=== PATIENT | male | born 1995 | race Caucasian/White ===

== ENCOUNTER 2022-12-06 03:02 | Emergency (ER) | payer SELFPAY ==
[2022-12-06 03:17] VITALS: BP 156/92; PULSE 82; RESP 18; TEMP 36.6; O2SAT 95; BMI 35.7
--- NOTE | 2022-12-06 03:28 | ED.GENADULT ---
HPI - General Adult General Chief complaint: Urogenital-Male Stated complaint: painful urination Time Seen by Provider: 12/06/22 03:04 Source: patient Mode of arrival: Ambulatory History of Present Illness HPI narrative: Patient is a 27-year-old male. He is here for evaluation of approximately 7 days of painful urination. He also states that 4 days he developed a couple bumps on the tip of his penis now he is bumps of the base of the penis. They are somewhat tender to palpation. He is no history of urinary tract infections or STIs. He states that he did have vaginal and anal intercourse with his a few days prior to the onset of his symptoms. Has not tried anything for the symptoms prior to arrival. He is not having any penile discharge. Related Data Previous Rx's Medication Instructions Recorded acyclovir 400 mg tablet 400 mg PO TID 10 days #30 tabs 12/06/22 Allergies Allergy/AdvReac Type Severity Reaction Status Date / Time No Known Drug Allergies Allergy Verified 12/06/22 04:21 Review of Systems Constitutional Constitutional: Reports system reviewed and no additional complaints, except as documented Gastrointestinal Gastrointestinal: Reports system reviewed and no additional complaints, except as documented Genitourinary Genitourinary: Reports system reviewed and no additional complaints, except as documented Musculoskeletal Musculoskeletal: Reports system reviewed and no additional complaints, except as documented Exam Initial Vital Signs Initial Vital Signs: Vital Signs Temperature 98 F 12/06/22 03:17 Pulse Rate 82 12/06/22 03:17 Respiratory Rate 18 12/06/22 03:17 Blood Pressure 156/92 H 12/06/22 03:17 Pulse Oximetry 95 12/06/22 03:17 Oxygen Delivery Method Room Air 12/06/22 03:17 Const General: cooperative, comfortable and No ill appearing [facility] Head: normal to inspection External: circumcised and lesions Penis: normal penis Skin Other: A clustered area blisters at the base of the penile shaft on the left. There is no discharge. Extrem General: normal to inspection Course Orders Ordered: ED Orders 12/06/22 03:10 Chlamydia Gonorrhea PCR -URINE Stat Urinalysis and Microscopic Stat Urine Culture Stat Vital Signs Vital signs: Vital Signs - 8 hr 12/06/22 03:17 Temperature 98 F Pulse Rate 82 Respiratory Rate 18 Blood Pressure 156/92 H Pulse Oximetry 95 Oxygen Delivery Method Room Air Medical Decision Making Lab Data Lab results reviewed: Yes I reviewed the patient's lab results. Labs: Lab Results 12/06/22 Range/Units 03:10 Urine Color Yellow Urine Appearance Clear Urine pH 6.0 (4.5-8.0) Ur Specific [place] 1.025 (1.000-1.035) Urine Protein Negative (Negative) Urine Glucose (UA) Negative (Negative) g/dL Urine Ketones Negative (NEGATIVE) Urine Occult Blood Negative (Negative) Urine Nitrate Negative (Negative) Urine Bilirubin Negative (NEGATIVE) Urine Urobilinogen 1.0 (0.2) E.U./dL Ur Leukocyte Esterase Negative (NEGATIVE) Urine RBC None seen (0-5/HPF) Urine WBC 0-1/hpf (0-5/HPF) Ur Squamous Epith Cells None seen (0-5/HPF) Urine Bacteria None seen (None) Urine Mucus 1+ H (Negative) Micro UA Comment * Ur Chlamydia DNA (PCR) Not detected N gonorrhoeae DNA (PCR) Not detected Urine Dip Bedside Urine Glucose Negative Bedside Urine Bilirubin - Negative Bedside Urine Ketone - Negative Urine Specific [place] 1.025 Bedside Urine Occult Blood - Negative Bedside Urine pH 6 Bedside Urine Protein +/- 15 Bedside Urine Urobilinogen - Negative Bedside Urine Nitrite - Negative Bedside Urine Leukocytes - Negative Esterase Point of care testing: Urine Dip Bedside Urine Glucose Negative Bedside Urine Bilirubin - Negative Bedside Urine Ketone - Negative Urine Specific [place] 1.025 Bedside Urine Occult Blood - Negative Bedside Urine pH 6 Bedside Urine Protein +/- 15 Bedside Urine Urobilinogen - Negative Bedside Urine Nitrite - Negative Bedside Urine Leukocytes - Negative Esterase MDM Narrative Medical decision making narrative: Urinalysis is negative. Gonorrhea chlamydia is negative. His history physical exam is consistent with genital herpes. I have low suspicion for syphilis based on his exam. We will start him on acyclovir. Prescription was sent to the pharmacy of his choice. He was informed of his diagnosis. We discussed precautions that he should take it to avoid potential transmission to his . He was given return precautions. He expressed understanding and agreement. Discharge Plan Departure Patient Disposition: Home Clinical Impression: Genital herpes simplex Instructions: DI for Genital Herpes Activity Restrictions/Additional Instructions: I do recommend that you refrain from any sexual activity until you are not develop any new lesions in the lesions that are there have healed. I also recommend that you do not share towels during this time. You do need to keep the area covered with clothes. Contact your primary doctor for follow-up. Return to the emergency department for new symptoms. Prescriptions: New acyclovir 400 mg tablet 400 mg PO TID 10 Days Qty: 30 0RF Stand Alone Forms: Patient Portal/API
[2022-12-06 03:41] LABS: Appearance Urine UA CLEAR; Bilirubin Urine UA NEGATIVE (NEGATIVE); Color Urine UA YELLOW; Glucose Urine UA NEGATIVE (Negative); Ketones Urine UA NEGATIVE (NEGATIVE); Leukocyte Esterase Urine UA NEGATIVE (NEGATIVE); Nitrite Urine UA NEGATIVE (Negative); Occult Blood Urine UA NEGATIVE (Negative); Protein Urine UA NEGATIVE (Negative); Specific Gravity Urine UA 1.025 (1.000-1.035)
[2022-12-06 03:55] LABS: Bacteria Urine None Seen; Mucus Urine 1+ (Negative); RBC Urine None Seen (0-5/HPF); Squamous Epithelial Cell Urine None Seen (0-5/HPF); WBC Urine 0-1/HPF (0-5/HPF)
[2022-12-06 04:57] LABS: Urine Chlamydia NOT DETECTED; Urine N gonorrhoeae NOT DETECTED
[2022-12-06 05:08] VITALS: BP 143/89; PULSE 82; RESP 16; O2SAT 97
== END 2022-12-06 05:09 | disposition home or self-care (01) ==
PROVIDERS: Emergency Provider Emergency Medicine
DX: A60.01 Herpesviral infection of penis (principal)
CPT/HCPCS: 81001; 81003; 87086; 87491; 87591; 99282